=== PATIENT | female | born 1925 | race Caucasian/White ===

== ENCOUNTER 2016-09-18 15:27 | Inpatient (IN) | payer MEDICARE, OTHER, MEDICAID ==
[2016-09-18] MEDS ORDERED: MORPHINE SULFATE 10 MG/ML INJ IV ONE (15:46)
--- NOTE | 2016-09-18 15:52 | ER Document Report ---
ED General - General Chief Complaint: Breathing Difficulty Stated Complaint: DIFFICULTY BREATHING Mode of Arrival: Medic Information source: Relative, Emergency Med Personnel, [facility] Records Cannot obtain history due to: Dementia Notes: This is an 89-year-old female with advanced dementia who lives sent from [facility] after an episode of respiratory difficulty. Per the long-term patient had an episode of apnea. EMS reports that upon their arrival patient was breathing spontaneously. She was noted to have a large amount of food in her mouth upon their arrival. Patient's daughter is present at the bedside states that patient is at her baseline mental status at this time. She is nonverbal. Patient's daughter also states that she is recently been treated for pneumonia. Daughter also states that patient is a DO NOT RESUSCITATE and would not want invasive or aggressive interventions should she decompensate. TRAVEL OUTSIDE OF THE [place] IN LAST 30 DAYS: No - Related Data Allergies/Adverse Reactions: codeine Allergy (Verified 05/21/16 21:37) Penicillins Allergy (Verified 05/21/16 21:37) propoxyphene Allergy (Verified 05/21/16 21:37) Sulfa (Sulfonamide Antibiotics) Allergy (Verified 05/21/16 21:37) Past Medical History - General Information source: Relative, Outside Facility Records Cannot obtain history due to: Dementia - Social History Smoking Status: Unknown if Ever Smoked Family History: Reviewed & Not Pertinent - Past Medical History Cardiac Medical History: Reports: Hx Atrial Fibrillation, Hx Hypertension Pulmonary Medical History: Reports: Hx Pneumonia Psychiatric Medical History: Reports: Hx Dementia Review of Systems - Review of Systems -: Yes ROS unobtainable due to patient's medical condition Physical Exam - Notes Notes: PHYSICAL EXAMINATION: GENERAL: thin, frail, chronically ill appearing elderly female, nonverbal, occasional yells out (daughter states this is baseline) HEAD: Atraumatic, normocephalic. EYES: Pupils equal round and reactive to light ENT: nares patent, oropharynx clear without exudates. Mouth held open all the time, mucous membranes dry, few small pieces of carrot noted in oropharynx and removed NECK: Normal range of motion LUNGS: Breath sounds clear to auscultation bilaterally and equal. No wheezes rales or rhonchi. HEART: irregularly irregular rhythm, 3/6 systolic murmur across precordium ABDOMEN: Soft, distended, hypoactive bowel sounds but present. No guarding, no rebound. No masses appreciated. EXTREMITIES: contracted RLE. Generalized edema most pronounced in LUE NEUROLOGICAL: moves all 4 spontaneously. Nonverbal. Baseline per daughter Course - Laboratory Result Diagrams: 09/18/16 15:45 09/18/16 16:40 Laboratory results interpreted by me: 09/18/16 09/18/16 15:45 16:40 WBC 11.5 H RBC 3.45 L Hgb 10.1 L Hct 29.4 L RDW 15.8 H Seg Neutrophils % 81.3 H Absolute Neutrophils 9.3 H Potassium 1.3 L* Chloride 96 L Carbon Dioxide 36 H BUN 21 H Glucose 181 H Calcium 8.3 L Total Protein 5.4 L Albumin 2.5 L Discharge - Discharge Clinical Impression: Acute hypokalemia Dementia Qualifiers: Dementia type: unspecified type Dementia behavioral disturbance: without behavioral disturbance Qualified Code(s): F03.90 - Unspecified dementia without behavioral disturbance Condition: Critical Disposition: ADMITTED INPATIENT Unit Admitted: Telemetry
[2016-09-18 15:58] LABS: ABSOLUTE LYMPHOCYTES (AUTO) 1.6 10^3/uL (0.5-4.7); ABSOLUTE MONOCYTES (AUTO) 0.5 10^3/uL (0.1-1.4); ABSOLUTE NEUT (AUTO) 9.3 10^3/uL (1.7-8.2); BASOPHILS % (AUTO) 0.3 % (0-2); EOSINOPHILS % (AUTO) 0.3 % (0-6); HEMATOCRIT 29.4 % (36.0-47.0); HEMOGLOBIN 10.1 g/dL (12.0-15.5); HGB HCT DIFFERENCE 0.9; LYMPHOCYTES % (AUTO) 13.6 % (13-45); MEAN CORPUSCULAR HEMOGLOBIN 29.4 pg (27.0-33.4); MEAN CORPUSCULAR HGB CONC 34.5 g/dL (32.0-36.0); MEAN CORPUSCULAR VOLUME 85 fl (80-97); MONOCYTES % (AUTO) 4.5 % (3-13); RED BLOOD COUNT 3.45 10^6/uL (3.72-5.28); RED CELL DISTRIBUTION WIDTH 15.8 % (11.5-14.0); SEGMENTED NEUTROPHILS % (AUTO) 81.3 % (42-78); WHITE BLOOD COUNT 11.5 10^3/uL (4.0-10.5)
[2016-09-18 16:16] LABS: ANISOCYTOSIS 1+; HYPOCHROMASIA 1+; OVALOCYTES 2+; POIKILOCYTOSIS 2+
[2016-09-18 17:10] LABS: ALANINE AMINOTRANSFERASE 23 U/L (9-52); ALBUMIN 2.5 g/dL (3.5-5.0); ALKALINE PHOSPHATASE 99 U/L (38-126); ANION GAP 12 (5-19); ASPARTATE AMINO TRANSFERASE 27 U/L (14-36); BILIRUBIN,DIRECT 0.3 mg/dL (0.0-0.4); BILIRUBIN,TOTAL 0.9 mg/dL (0.2-1.3); BLOOD UREA NITROGEN 21 mg/dL (7-20); CALCIUM 8.3 mg/dL (8.4-10.2); CARBON DIOXIDE 36 mmol/L (22-30); CHLORIDE 96 mmol/L (98-107); CREATININE RESULT 0.78 mg/dL (0.52-1.25); GLUCOSE 181 mg/dL (75-110); SODIUM 143.8 mmol/L (137-145); TOTAL PROTEIN 5.4 g/dL (6.3-8.2)
[2016-09-18 17:17] LABS: POTASSIUM 1.3 mmol/L (3.6-5.0)
[2016-09-18] MEDS: POTASSI CL 20 MEQ/50 ML RIDER 50 ML IV SCH ×3 (17:23→23:20)
[2016-09-18] MEDS ORDERED: ONDANSETRON HCL INJ/PF 4 MG/2 ML SDV IV PRN (17:56)
[2016-09-18] MEDS ORDERED: ONDANSETRON 4 MG TAB.RAPDIS PO PRN (17:56)
[2016-09-18] MEDS ORDERED: POTASSI CL 40 MEQ/D5-1/2NS 1L 1,000 ML IV PRN (17:56)
[2016-09-18] MEDS ORDERED: ACETAMINOPHEN 325 MG TABLET PO PRN (17:56)
--- NOTE | 2016-09-18 18:23 | PDOC H&P ---
History of Present Illness Admission Date/PCP: 09/18/16 17:46 SOPHIA SILVA MD Patient complains of: she is demented. She was brought in for some respiratory difficulties. History of Present Illness: NADYA PERAZA is a 89 year old female who is severely demented who is resident at [facility]. She has some difficulty breathing earlier today and she was brought in by EMS. She was found to have a potassium of 1.3. She is unable to give any history as she is demented. The daughter is at the bedside relates that she has had some diarrhea over the last several days has had decreased by mouth intake also. History of fevers or chills. Past Medical History Cardiac Medical History: Reports: Atrial Fibrillation, Hypertension Pulmonary Medical History: Reports: Pneumonia Endocrine Medical History: Reports: Diabetes Mellitus Type 2, Hypothyroidism Malignancy Medical History: Reports: None GI Medical History: Reports: None Psychiatric Medical History: Reports: Dementia Traumatic Medical History: Reports: None Hematology: Reports: None Infectious Medical History: Reports: None Past Surgical History Past Surgical History: Reports: None Social History Information Source: Relative Lives with: [facility] Smoking Status: Never Smoker Frequency of Alcohol Use: None Hx Recreational Drug Use: No Drugs: None Hx Prescription Drug Abuse: No - Advance Directive Resuscitation Status: Do Not Resuscitate - The patient's daughter who was at the bedside confirms that the patient is a DO NOT RESUSCITATE. Surrogate healthcare decision maker:: The daughter is the power of insurance attorney Family History Family History: The mother lived to be 80 had no chronic health problems. Father at age 95 with an aneurysm. Parental Family History Reviewed: Yes Children Family History Reviewed: No Sibling(s) Family History Reviewed.: No Medication/Allergy Home Medications: Hydrocodone/Acetaminophen [[place] 5-325 mg Tablet] 1 tab PO Q4HP PRN #20 tablet 05/21/16 Diazepam [Valium 2 mg Tablet] 2 mg PO Q8HP PRN #15 tablet 06/12/16 Fentanyl [Duragesic 25 mcg/hr Transdermal Patch] 1 each TD Q3D #20 [id number] Allergies/Adverse Reactions: codeine Allergy (Verified 05/21/16 21:37) Penicillins Allergy (Verified 05/21/16 21:37) propoxyphene Allergy (Verified 05/21/16 21:37) Sulfa (Sulfonamide Antibiotics) Allergy (Verified 05/21/16 21:37) Review of Systems ROS unobtainable: Due to mental status Physical Exam General appearance: PRESENT: no acute distress Head exam: PRESENT: atraumatic, normocephalic Eye exam: PRESENT: conjunctiva pink. ABSENT: scleral icterus Ear exam: PRESENT: normal external ear exam Mouth exam: PRESENT: dry mucosa Neck exam: ABSENT: carotid bruit, JVD, lymphadenopathy, thyromegaly Respiratory exam: PRESENT: clear to auscultation jania. ABSENT: rales, rhonchi, wheezes Cardiovascular exam: PRESENT: RRR. ABSENT: diastolic murmur, rubs, systolic murmur GI/Abdominal exam: PRESENT: normal bowel sounds, soft. ABSENT: distended, guarding, mass, organolmegaly, rebound, tenderness Rectal exam: PRESENT: deferred Extremities exam: PRESENT: other - Patient's bilateral upper extremities are edematous left greater than right. The left lower extremity shows an interosseous IV in place. There is also a peripheral IV in the right leg. Neurological exam: PRESENT: awake, reflexes normal, other - Patient cannot cooperate with an exam.. ABSENT: alert, oriented to person, oriented to place, oriented to time, oriented to situation, CN II-XII grossly intact Psychiatric exam: PRESENT: other - Demented Skin exam: PRESENT: dry, intact, petechiae - Some petechiae on the left side of her neck., warm. ABSENT: cyanosis, rash Results Impressions: Chest X-Ray 09/18/16 15:42 IMPRESSION: Gaseous distension of colon under the hemidiaphragms. Mild cardiomegaly. No acute infiltrates Wrist X-Ray 09/18/16 15:44 IMPRESSION: No acute changes Status: Image reviewed by me Assessment & Plan - Diagnosis (1) Acute hypokalemia Is this a current diagnosis for this admission?: YesPlan: Patient has had decreased by mouth intake along with some diarrhea over the last several days as the most likely cause for her low potassium. We'll give IV replacement and monitor. (2) Atrial fibrillation Is this a current diagnosis for this admission?: YesPlan: Patient is rate controlled. (3) Diabetes Is this a current diagnosis for this admission?: YesPlan: We'll cover with sliding scale insulin. (4) Hypothyroidism Is this a current diagnosis for this admission?: YesPlan: Patient previously has been on Synthroid. (5) Dementia Qualifiers: Dementia type: unspecified type Dementia behavioral disturbance: without behavioral disturbance Qualified Code(s): F03.90 - Unspecified dementia without behavioral disturbance Is this a current diagnosis for this admission?: YesPlan: Patient is fairly demented and unable to give any type of history. (6) Do not resuscitate Is this a current diagnosis for this admission?: YesPlan: Daughter was at the bedside and agrees that she is a DO NOT RESUSCITATE. She is the surrogate healthcare decision-maker - Time Time Spent: 50 to 70 Minutes - Inpatient Certification Medical Necessity: Need Close Monitoring Due to Risk of Patient Decompensation, Need For IV Fluids
[2016-09-18] MEDS ORDERED: DEXTROSE 50%-WATER 25 GM/50 ML DISP.SYRIN IV PRN ×2 (18:24)
[2016-09-18] MEDS ORDERED: GLUCAGON,HUMAN RECOMB 1 MG INJ IM PRN (18:24)
[2016-09-18] MEDS ORDERED: DEXTROSE 40% GEL 15 GM TUBE PO PRN ×2 (18:24)
[2016-09-18] MEDS ORDERED: INSULIN LISPRO 100 UNIT/ML 3 ML VIAL SUBCUT PRN (18:24)
[2016-09-18] MEDS ORDERED: ENOXAPARIN SODIUM INJ 40 MG/0.4 ML DISP.SYRIN SUBCUT ONE (22:00)
[2016-09-18] MEDS: FAMOTIDINE 20 MG TABLET PO SCH (22:42)
[2016-09-18 23:15] LABS: ANION GAP 8 (5-19); BLOOD UREA NITROGEN 22 mg/dL (7-20); CALCIUM 8.2 mg/dL (8.4-10.2); CARBON DIOXIDE 37 mmol/L (22-30); CHLORIDE 98 mmol/L (98-107); CREATININE RESULT 0.77 mg/dL (0.52-1.25); GLUCOSE 133 mg/dL (75-110); MAGNESIUM 1.8 mg/dL (1.6-2.3); SODIUM 142.9 mmol/L (137-145)
[2016-09-18 23:19] LABS: POTASSIUM 1.6 mmol/L (3.6-5.0)
[2016-09-19] MEDS ORDERED: POTASSI CL 20 MEQ/50 ML RIDER 20 MEQ/50 ML RTUPB IV SCH
[2016-09-19] MEDS: POTASSI CL 20 MEQ/50 ML RIDER 20 MEQ/50 ML RTUPB IV SCH ×4 (01:38→08:07)
[2016-09-19 05:37] LABS: HEMATOCRIT 25.1 % (36.0-47.0); HGB HCT DIFFERENCE 1.9; MEAN CORPUSCULAR HEMOGLOBIN 30.1 pg (27.0-33.4); MEAN CORPUSCULAR HGB CONC 35.6 g/dL (32.0-36.0); MEAN CORPUSCULAR VOLUME 85 fl (80-97); RED BLOOD COUNT 2.98 10^6/uL (3.72-5.28); RED CELL DISTRIBUTION WIDTH 15.8 % (11.5-14.0); WHITE BLOOD COUNT 6.9 10^3/uL (4.0-10.5)
[2016-09-19 05:46] LABS: ANION GAP 7 (5-19); BLOOD UREA NITROGEN 20 mg/dL (7-20); CALCIUM 7.9 mg/dL (8.4-10.2); CARBON DIOXIDE 37 mmol/L (22-30); CHLORIDE 101 mmol/L (98-107); CREATININE RESULT 0.71 mg/dL (0.52-1.25); GLUCOSE 107 mg/dL (75-110); SODIUM 145.2 mmol/L (137-145)
[2016-09-19 05:53] LABS: POTASSIUM 1.9 mmol/L (3.6-5.0)
[2016-09-19] MEDS ORDERED: POTASSI CL 20 MEQ/50 ML RIDER 50 ML IV SCH ×2 (06:30→15:45)
[2016-09-19] MEDS: ENOXAPARIN SODIUM INJ 40 MG/0.4 ML DISP.SYRIN SUBCUT SCH (08:08)
[2016-09-19] MEDS: FAMOTIDINE 20 MG TABLET PO SCH ×2 (09:23→21:01)
[2016-09-19] MEDS: POTASSIUM CHLORIDE 20 MEQ/50 ML RTU IV SCH ×5 (10:56→23:28)
--- NOTE | 2016-09-19 10:57 | PDOC PROGRESS REPORT ---
Subjective Progress Note for:: 09/19/16 Subjective:: Patient does not complain however the nursing staff is concerned that she may be having abdominal pain. Physical Exam Vital Signs: Temp Pulse Resp BP Pulse Ox 97.4 F 67 17 170/75 H 100 09/19/16 07:14 09/19/16 07:14 09/19/16 07:14 09/19/16 07:14 09/19/16 07:14 Intake & Output 09/18/16 09/19/16 09/20/16 06:59 06:59 06:59 Intake Total 1404 Balance 1404 Weight 59.3 kg General appearance: PRESENT: no acute distress Eye exam: PRESENT: conjunctiva pink. ABSENT: scleral icterus Mouth exam: PRESENT: moist, tongue midline Neck exam: ABSENT: JVD Respiratory exam: PRESENT: clear to auscultation jania. ABSENT: rales, rhonchi, wheezes Cardiovascular exam: PRESENT: RRR. ABSENT: diastolic murmur, rubs, systolic murmur GI/Abdominal exam: PRESENT: normal bowel sounds, soft. ABSENT: distended, guarding, mass, organolmegaly, rebound, tenderness Extremities exam: ABSENT: calf tenderness, clubbing, pedal edema Neurological exam: PRESENT: alert, awake, oriented to person, oriented to place , oriented to time, oriented to situation, CN II-XII grossly intact. ABSENT: motor sensory deficit Psychiatric exam: PRESENT: appropriate affect Skin exam: PRESENT: dry, intact, warm. ABSENT: cyanosis, rash Results Laboratory Results: 09/19/16 05:09 09/19/16 05:09 09/18/16 09/19/16 09/19/16 22:53 05:09 05:09 WBC 6.9 RBC 2.98 L Hgb 9.0 L Hct 25.1 L MCV 85 MCH 30.1 MCHC 35.6 RDW 15.8 H Plt Count 146 L Sodium 142.9 145.2 H Potassium 1.6 L* 1.9 L* Chloride 98 101 Carbon Dioxide 37 H 37 H Anion Gap 8 7 BUN 22 H 20 Creatinine 0.77 0.71 Est GFR ( Amer) > 60 > 60 Est GFR (Non-Af Amer) > 60 > 60 Glucose 133 H 107 Calcium 8.2 L 7.9 L Magnesium 1.8 Impressions: Chest X-Ray 09/18/16 15:42 IMPRESSION: Gaseous distension of colon under the hemidiaphragms. Mild cardiomegaly. No acute infiltrates Wrist X-Ray 09/18/16 15:44 IMPRESSION: No acute changes Assessment & Plan - Diagnosis (1) Acute hypokalemia Is this a current diagnosis for this admission?: YesPlan: Patient has had decreased by mouth intake along with some diarrhea over the last several days as the most likely cause for her low potassium. Continue with potassium replacement. (2) Atrial fibrillation Is this a current diagnosis for this admission?: YesPlan: Patient is rate controlled. (3) Diabetes Is this a current diagnosis for this admission?: YesPlan: We'll cover with sliding scale insulin. (4) Hypothyroidism Is this a current diagnosis for this admission?: YesPlan: Patient previously has been on Synthroid. (5) Dementia Qualifiers: Dementia type: unspecified type Dementia behavioral disturbance: without behavioral disturbance Qualified Code(s): F03.90 - Unspecified dementia without behavioral disturbance Is this a current diagnosis for this admission?: YesPlan: Patient is fairly demented and unable to give any type of history. (6) Do not resuscitate Is this a current diagnosis for this admission?: YesPlan: Daughter agrees that she is a DO NOT RESUSCITATE. She is the surrogate healthcare decision-maker - Time Time Spent with patient: 25-34 minutes - Inpatient Certification Medical Necessity: Need Close Monitoring Due to Risk of Patient Decompensation
[2016-09-19] MEDS: MORPHINE SULFATE 10 MG/ML INJ IV PRN ×3 (11:38→23:28)
[2016-09-19 14:13] LABS: ANION GAP 8 (5-19); BLOOD UREA NITROGEN 19 mg/dL (7-20); CALCIUM 7.9 mg/dL (8.4-10.2); CARBON DIOXIDE 36 mmol/L (22-30); CHLORIDE 103 mmol/L (98-107); GLUCOSE 110 mg/dL (75-110); SODIUM 146.8 mmol/L (137-145)
[2016-09-19 14:18] LABS: POTASSIUM 2.4 mmol/L (3.6-5.0)
--- NOTE | 2016-09-19 22:04 | EKG REPORT ---
SEVERITY:- ABNORMAL ECG - ATRIAL FIBRILLATION RUN OF VENTRICULAR PREMATURE COMPLEXES RIGHT BUNDLE BRANCH BLOCK : Confirmed by: Teagan Fan MD 19-Sep-2016 22:04:23
[2016-09-20] MEDS: POTASSIUM CHLORIDE 20 MEQ/50 ML RTU IV SCH (01:44)
[2016-09-20 05:30] LABS: ABSOLUTE EOSINOPHILS # (AUTO) 0.2 10^3/uL (0.0-0.6); ABSOLUTE LYMPHOCYTES (AUTO) 1.5 10^3/uL (0.5-4.7); ABSOLUTE MONOCYTES (AUTO) 0.3 10^3/uL (0.1-1.4); ABSOLUTE NEUT (AUTO) 3.9 10^3/uL (1.7-8.2); BASOPHILS % (AUTO) 0.8 % (0-2); EOSINOPHILS % (AUTO) 2.5 % (0-6); HEMATOCRIT 26.6 % (36.0-47.0); HEMOGLOBIN 9.2 g/dL (12.0-15.5); LYMPHOCYTES % (AUTO) 25.4 % (13-45); MEAN CORPUSCULAR HEMOGLOBIN 29.8 pg (27.0-33.4); MEAN CORPUSCULAR HGB CONC 34.4 g/dL (32.0-36.0); MEAN CORPUSCULAR VOLUME 87 fl (80-97); MONOCYTES % (AUTO) 4.9 % (3-13); RED BLOOD COUNT 3.08 10^6/uL (3.72-5.28); RED CELL DISTRIBUTION WIDTH 15.8 % (11.5-14.0); SEGMENTED NEUTROPHILS % (AUTO) 66.4 % (42-78); WHITE BLOOD COUNT 5.9 10^3/uL (4.0-10.5)
[2016-09-20 05:32] LABS: ANION GAP 7 (5-19); BLOOD UREA NITROGEN 17 mg/dL (7-20); CALCIUM 7.6 mg/dL (8.4-10.2); CARBON DIOXIDE 32 mmol/L (22-30); CHLORIDE 109 mmol/L (98-107); CREATININE RESULT 0.67 mg/dL (0.52-1.25); GLUCOSE 99 mg/dL (75-110); SODIUM 147.7 mmol/L (137-145)
[2016-09-20 05:47] LABS: POTASSIUM 3.8 mmol/L (3.6-5.0)
[2016-09-20] MEDS: ENOXAPARIN SODIUM INJ 40 MG/0.4 ML DISP.SYRIN SUBCUT SCH (07:48)
[2016-09-20] MEDS ORDERED: POTASSIUM CHLORIDE 10 MEQ TABLET.SA PO SCH (10:00)
--- NOTE | 2016-09-20 10:01 | PDOC TRANSFER SUMMARY ---
General - Admit/Disc Date/PCP Admission Date/Primary Care Provider: 09/18/16 17:56 SOPHIA SILVA MD Discharge Date: 09/20/16 - Discharge Diagnosis (1) Acute hypokalemia Is this a current diagnosis for this admission?: YesSummary: [place] to most likely be secondary to combination decreased by mouth intake and diarrhea. This has resolved. (2) Atrial fibrillation Is this a current diagnosis for this admission?: Yes (3) Diabetes Is this a current diagnosis for this admission?: Yes (4) Hypothyroidism Is this a current diagnosis for this admission?: Yes (5) Dementia Is this a current diagnosis for this admission?: Yes (6) Do not resuscitate Is this a current diagnosis for this admission?: Yes - Additional Information Resuscitation Status: Do Not Resuscitate Discharge Diet: Cardiac, Diabetic Discharge Activity: Activity As Tolerated Home Medications: Acetaminophen [Tylenol 325 mg Tablet] 650 mg PO Q8HP PRN 09/18/16 Acetaminophen [Tylenol 650 mg Supp] 650 mg RI Q4HP PRN 09/18/16 Hypromellose [[place]] 1 drop OU PRN PRN 09/18/16 Levothyroxine Sodium [Synthroid 0.05 mg Tablet] 50 mcg PO DAILY 09/18/16 Ondansetron HCl [Zofran 4 mg Tablet] 4 mg PO Q6HP PRN 09/18/16 Zinc Sulfate [Zinc-220 Capsule] 220 mg PO DAILY 09/18/16 Alprazolam [Xanax 0.25 mg Tablet] 0.25 mg PO Q8HP PRN #20 tablet 09/20/16 Morphine Sulfate [Roxanol] 2 mg PO Q4HP PRN #30 ml 09/20/16 Potassium Chloride [Klor-Con 10 Meq Tablet.sa] 20 meq PO Q12 tablet.sa History of Present Illness Admission Date/PCP: 09/18/16 17:56 SOPHIA SILVA MD History of Present Illness: NADYA PERAZA is a 89 year old female who is severely demented who is resident at [facility]. She has some difficulty breathing earlier today and she was brought in by EMS. She was found to have a potassium of 1.3. She is unable to give any history as she is demented. The daughter is at the bedside relates that she has had some diarrhea over the last several days has had decreased by mouth intake also. History of fevers or chills. Hospital Course Hospital Course: 82-year-old female with severe dementia presented with hypokalemia. She was given IV as well as potassium by mouth and had improvement in her levels. On the day of discharge her potassium had returned to normal range. The patient's hypokalemia is felt to most likely represent a combination of decreased by mouth intake along with diarrhea. The diarrhea has resolved however the patient still not taking much in by mouth however she is demented and she is a DO NOT RESUSCITATE. Physical Exam Vital Signs: Temp Pulse Resp BP Pulse Ox 97.6 F 94 21 H 173/101 H 99 09/20/16 07:21 09/20/16 07:21 09/20/16 07:21 09/20/16 07:21 09/20/16 07:21 Intake & Output 09/19/16 09/20/16 09/21/16 06:59 06:59 06:59 Intake Total 1404 4292 Balance 1404 4292 Weight 59.3 kg 65.8 kg General appearance: PRESENT: no acute distress Eye exam: PRESENT: conjunctiva pink. ABSENT: scleral icterus Mouth exam: PRESENT: moist, tongue midline Neck exam: ABSENT: JVD Respiratory exam: PRESENT: clear to auscultation jania. ABSENT: rales, rhonchi, wheezes Cardiovascular exam: PRESENT: RRR. ABSENT: diastolic murmur, rubs, systolic murmur GI/Abdominal exam: PRESENT: normal bowel sounds, soft, other - Patient has a ventral hernia with bowel present it is nontender. ABSENT: distended, guarding , mass, organolmegaly, rebound, tenderness Extremities exam: ABSENT: calf tenderness, clubbing, pedal edema Neurological exam: PRESENT: awake. ABSENT: oriented to person, oriented to place, oriented to time, oriented to situation Psychiatric exam: PRESENT: flat affect Skin exam: PRESENT: dry, intact, warm. ABSENT: cyanosis, rash Results Laboratory Results: 09/20/16 04:53 09/20/16 04:53 09/19/16 09/20/16 09/20/16 13:46 04:53 04:53 WBC 5.9 RBC 3.08 L Hgb 9.2 L Hct 26.6 L MCV 87 MCH 29.8 MCHC 34.4 RDW 15.8 H Plt Count 140 L Seg Neutrophils % 66.4 Lymphocytes % 25.4 Monocytes % 4.9 Eosinophils % 2.5 Basophils % 0.8 Absolute Neutrophils 3.9 Absolute Lymphocytes 1.5 Absolute Monocytes 0.3 Absolute Eosinophils 0.2 Absolute Basophils 0.0 Sodium 146.8 H 147.7 H Potassium 2.4 L* 3.8 D Chloride 103 109 H Carbon Dioxide 36 H 32 H Anion Gap 8 7 BUN 19 17 Creatinine 0.70 0.67 Est GFR ( Amer) > 60 > 60 Est GFR (Non-Af Amer) > 60 > 60 Glucose 110 99 Calcium 7.9 L 7.6 L Impressions: Chest X-Ray 09/18/16 15:42 IMPRESSION: Gaseous distension of colon under the hemidiaphragms. Mild cardiomegaly. No acute infiltrates Wrist X-Ray 09/18/16 15:44 IMPRESSION: No acute changes Venous Doppler Study 09/19/16 00:00 IMPRESSION: NO EVIDENCE DVT OR SVT IN THE LEFT ARM. Transfer Plan - Disposition Transfer Plan: Transfer back to [facility]. - Time Spent with Patient Time spent with patient: Less than 30 Minutes Qualifiers PATEINT BEING DISCHARGED WITH ANY OF THE FOLLOWING DIAGNOSIS?: No Plan Discharge Plan: Patient is transferred back to [facility]. Time Spent: Greater than 30 Minutes
[2016-09-20] MEDS: MORPHINE SULFATE 10 MG/ML INJ IV PRN (10:29)
[2016-09-20] MEDS: FAMOTIDINE 20 MG TABLET PO SCH (11:44)
[2016-09-20 13:42] VITALS: BP 163/98
== END 2016-09-20 14:30 | DRG 641 ==
LOC: ER 15:27 → UNDOADMIN 17:46 → EH 17:46 → 4W 20:35
PROVIDERS: ADMIT Internal Medicine; ATTEND Internal Medicine
DX: E87.6 Hypokalemia (principal); I48.91 Unspecified atrial fibrillation; E11.9 Type 2 diabetes mellitus without complications; E03.9 Hypothyroidism, unspecified; F03.90 Unspecified dementia, unspecified severity, without behavioral disturbance, psychotic disturbance, mood disturbance, and anxiety; I10 Essential (primary) hypertension; R19.7 Diarrhea, unspecified; Z66 Do not resuscitate; Z79.899 Other long term (current) drug therapy; Z88.6 Allergy status to analgesic agent; Z88.0 Allergy status to penicillin; Z88.2 Allergy status to sulfonamides
CPT/HCPCS: 36415; 71010; 80048; 80053; 82962; 83735; 85025; 85027; 87040; 93005; 93010; 93971; J1650; J2270; J3480